=== PATIENT | male | born 1950 | race Two or more races ===

== ENCOUNTER → 2017-08-21 | Outpatient (CLI) | payer MEDICARE, OTHER | END | disposition home or self-care (01) | LOC: NM 07:57 | PROVIDERS: ATTEND Internal Medicine Hematology & Oncology | DX: C61 Malignant neoplasm of prostate (principal) | CPT/HCPCS: 78306; A9503 ==

== ENCOUNTER 2021-09-10 14:54 | Inpatient (IN) | payer OTHER ==
[~2021-09-10] VITALS: Ht 172.7 cm; Wt 83.9 kg
[2021-09-10] MEDS ORDERED: SODIUM CHLORIDE 0.9% 1000ML BAG (SEPSIS BOLUS) IV ONE (15:30)
[2021-09-10 16:09] LABS: BG BASE EXCESS -1.1 mmol/L (-2.0-2.0); BG CARBOXYHEMOGLOBIN 0.1 % (0.5-1.5); BG HCO3 ACT 22.8 mmol/L (22.0-26.0); BG METHEMOGLOBIN 0.3 % (0.0-1.5); BG OXYHEMOGLOBIN 96.6 % (94.0-97.0); BG PCO2 35.1 mmHg (35.0-45.0); BG PH 7.431 (7.350-7.450); BG PO2 94.3 mmHg (75.0-100.0); BG SAMPLE SITE RIGHT BRACHIAL; BG VENT MODE ROOM AIR
[2021-09-10] MEDS ORDERED: AZITHROMYCIN 500MG/250ML 250 ML IV ONE (17:00)
[2021-09-10] MEDS ORDERED: CEFTRIAXONE 1 G PREMIX 50 ML IV ONE (17:00)
[2021-09-10 18:53] LABS: BASOPHILS % 0.6 % (0.0-2.0); EOSINOPHILS % 2.7 % (0.0-5.0); HEMATOCRIT. 29.2 % (42.0-52.0); LYMPHOCYTES % 10.4 % (20.0-50.0); MEAN CORPUSCULAR VOLUME 93.6 fL (80.0-94.0); MEAN PLATELET VOLUME 6.8 fl (7.4-10.4); MONOCYTES % 7.5 % (2.0-8.0); NEUTROPHILS % 78.8 % (40.0-76.0); PLATELET 238 x1000/uL (130-400); RED BLOOD CELL COUNT 3.12 mill/uL (4.7-6.1); RED CELL DISTRIBUTION WIDTH 17.9 % (11.6-14.6)
[2021-09-10 18:59] LABS: CHLORIDE 111 mEq/L (98-107)
[2021-09-10 19:00] LABS: PROTHROMBIN TIME 10.7 sec (9.6-11.0)
[2021-09-10 20:53] LABS: CLARITY URINE CLEAR (CLEAR); COLOR URINE YELLOW (YELLOW); KETONES URINE NEGATIVE (NEGATIVE); LEUKOCYTE ESTERASE URINE NEGATIVE (NEGATIVE); NITRITE URINE NEGATIVE (NEGATIVE); OCCULT BLOOD URINE NEGATIVE (NEGATIVE); PROTEIN URINE NEGATIVE (NEGATIVE); SPECIFIC GRAVITY URINE 1.018 (1.005-1.030); UROBILINOGEN URINE 0.2 E.U./dL (0.2-1.0)
[2021-09-10] MEDS ORDERED: CEFTRIAXONE 1,000 MG in DEXTROSE 5% WATER 50 ML IV SCH (21:15)
[2021-09-10] MEDS ORDERED: ASPIRIN 325MG EC TABLET PO ONE (21:15)
[2021-09-11 03:56] VITALS: BP 156/76
[2021-09-11 04:05] VITALS: BP 156/76
[2021-09-11] MEDS ORDERED: ASPI-1406 PO (04:17)
[2021-09-11] MEDS ORDERED: METF-415 PO (04:17)
[2021-09-11] MEDS ORDERED: OMEP40CA20 PO (04:17)
[2021-09-11] MEDS ORDERED: DOCU-150 PO (04:17)
[2021-09-11] MEDS ORDERED: TAMSULOSIN PO (04:17)
[2021-09-11] MEDS ORDERED: METO100T16 PO (04:17)
[2021-09-11] MEDS ORDERED: SENN-257 PO (04:17)
[2021-09-11] MEDS ORDERED: PEGF6DIS2 SUBCUT (04:17)
[2021-09-11] MEDS ORDERED: BENZ200C52 PO (04:17)
[2021-09-11] MEDS ORDERED: PNEUMOCOCCAL 23-VAL P-SAC VAC 0.5 ML IM ONE (04:45)
[2021-09-11] MEDS ORDERED: DEXTROSE 50% WATER 50ML SYRINGE IV PRN (05:30)
[2021-09-11] MEDS ORDERED: ACETAMINOPHEN 325MG TABLET PO PRN (05:30)
[2021-09-11] MEDS: BLOOD SUGAR DIAGNOSTIC STRIP TEST SCH ×3 (06:40→16:40)
[2021-09-11] MEDS: INSULIN LISPRO 100 UNITS/ML SUBCUT SCH ×3 (06:56→17:01)
[2021-09-11 08:00] VITALS: BP 135/65
[2021-09-11 11:54] VITALS: BP 149/74
[2021-09-11 16:00] VITALS: BP_SYST 145; BP_SYST 151; BP_SYST 162; BP_DIAS 67; BP_DIAS 72; BP_DIAS 82
[2021-09-11 17:48] VITALS: BP 141/71
== END 2021-09-11 18:50 | disposition home or self-care (01) | DRG 641 ==
LOC: ER 14:54 → MICUSO 21:03 → 7EST 09-11 03:40
PROVIDERS: ADMIT Internal Medicine; ATTEND Internal Medicine
DX: E86.0 Dehydration (principal); E44.1 Mild protein-calorie malnutrition; C25.9 Malignant neoplasm of pancreas, unspecified; I95.9 Hypotension, unspecified; I10 Essential (primary) hypertension; R19.7 Diarrhea, unspecified; D64.9 Anemia, unspecified; E11.9 Type 2 diabetes mellitus without complications; E87.8 Other disorders of electrolyte and fluid balance, not elsewhere classified; Z23 Encounter for immunization; Z68.28 Body mass index [BMI] 28.0-28.9, adult; Z79.4 Long term (current) use of insulin; C61 Malignant neoplasm of prostate; Z79.899 Other long term (current) drug therapy; Z92.21 Personal history of antineoplastic chemotherapy
CPT/HCPCS: 36415; 36600; 71045; 80053; 81003; 82375; 82805; 82962; 83036; 83605; 83880; 84145; 84484; 85025; 87015; 87045; 87427; 87449; 87493; 93005; 99285; J0456; J0696; J7030; J7060